=== PATIENT | female | born 1990 | race Caucasian/White ===

== ENCOUNTER 2019-11-13 11:48 | Emergency (ER) | payer OTHER, SELFPAY ==
[2019-11-13 11:59] VITALS: BP 128/62; PULSE 77; RESP 16; TEMP 37; O2SAT 100
--- NOTE | 2019-11-13 12:18 | ED.URI ---
HPI - URI/Sore Throat General Chief Complaint: Upper Respiratory Infection Stated Complaint: SORE THROAT/CONGESTION Time Seen by Provider: 11/13/19 11:52 Source: patient Limitations: no limitations History of Present Illness HPI Narrative: 29-year-old female presents to urgent care with complaints of sore throat, body aches, fatigue and chills since this morning. Patient reports that she has had postnasal drainage for the past month. Patient reports history of sinus infections. Patient not tried taking any mgnl-aum-itljuvs medications for her symptoms. Patient denies nausea, vomiting, diarrhea, shortness of breath, wheezing. Patient denies sick contacts. Patient is non-smoker. Patient denies recent travel MD elicited complaint: sore throat, rhinorrhea and nasal congestion Consistency: constant Able to tolerate fluids by mouth: Yes Exacerbating factors: nothing Relieving factors: nothing Treatments prior to arrival: none Related Data Home Medications Medication Instructions Recorded Confirmed Vicks DayQuil Cough 11/13/19 etonogestrel-ethinyl estradiol 1 vag ring VAGINAL ONCE 11/13/19 11/13/19 [NuvaRing] Allergies Allergy/AdvReac Type Severity Reaction Status Date / Time No Known Allergies Allergy Verified 11/13/19 12:05 Review of Systems Constitutional: Constitutional: Reports chills, Denies fatigue and Denies fever(s) ENT: Denies dysphagia, Denies dizziness, Denies epistaxis and Reports sore throat Cardiovascular: Cardiovascular: Denies chest pain and Denies radiating jaw, neck or arm pain Respiratory: Respiratory: Denies chest congestion, Denies dyspnea and Denies wheezing Gastrointestinal: Gastrointestinal: Denies constipation, Denies diarrhea, Denies nausea and Denies vomiting Neurologic: Denies vertigo, Denies dizziness, Denies syncope and Denies focal weakness [facility] Social History Social History (Updated 11/13/19 @ 12:21 by Vidhya Rivera APN) Smoking status: Never smoker Exam Const: General: healthy appearing, no acute distress and alert Orientation/consciousness: patient oriented x3 HENMT: Ears: external ears normal and TM's normal bilaterally General nose exam: Normal nares present Face and sinus: sinuses nontender Mouth: Yes Normal oral and palatal mucosa present Neck: Neck: normal visual inspection Chest: Chest palpation & inspection: normal inspection of the chest Resp: Effort & Inspection: normal respiratory effort Auscultation: clear to auscultation bilaterally Cardio: Rate: regular rate Rhythm: regular rhythm Heart sounds: no murmurs Skin: General skin exam: normal color, no jaundice and no pallor Rashes: no rashes Neuro: General: patient oriented x3, moves all extremities and no meningeal signs Extrem: General: normal to inspection Psych: Appearance: grossly normal Mental Status: mental status grossly normal Affect: normal affect Attitude: cooperative Thought content: Yes Normal thought content present Course Vital Signs Vital signs: Vital Signs Temperature 37.0 C 11/13/19 11:59 Pulse Rate 77 11/13/19 11:59 Respiratory Rate 16 11/13/19 11:59 Blood Pressure 128/62 11/13/19 11:59 Pulse Oximetry 100 11/13/19 11:59 Temperature 37.0 C 11/13/19 11:59 Pulse Rate 77 11/13/19 11:59 Respiratory Rate 16 11/13/19 11:59 Blood Pressure 128/62 11/13/19 11:59 Pulse Oximetry 100 11/13/19 11:59 MDM - URI/Sore Throat MDM Narrative Medical decision making narrative: Negative lab results discussed with patient. Patient agrees to take Claritin and Flonase as prescribed. Patient agrees to follow-up with primary care provider if symptoms not improve Differential Diagnosis Differential diagnosis: Likely otitis media, sinusitis, viral infection and bronchitis Lab Data Labs: Influenza A Screen Negative Reference Range: Negative Influenza B Screen Negative Reference Range: Negative Strep Screen
--- NOTE | 2019-11-13 12:41 | ED_ITS ---
HPI - URI/Sore Throat General Chief Complaint: Upper Respiratory Infection Stated Complaint: SORE THROAT/CONGESTION Time Seen by Provider: 11/13/19 11:52 Source: patient Limitations: no limitations History of Present Illness Exacerbating factors: nothing Relieving factors: nothing Treatments prior to arrival: none Related Data Home Medications Medication Instructions Recorded Confirmed Vicks DayQuil Cough 11/13/19 etonogestrel-ethinyl estradiol 1 vag ring VAGINAL ONCE 11/13/19 11/13/19 [NuvaRing] Allergies Allergy/AdvReac Type Severity Reaction Status Date / Time No Known Allergies Allergy Verified 11/13/19 12:05 [facility] Social History Social History (Updated 11/13/19 @ 12:21 by Vidhya Rivera APN) Smoking status: Never smoker Course Vital Signs Vital signs: Vital Signs Temperature 37.0 C 11/13/19 11:59 Pulse Rate 77 11/13/19 11:59 Respiratory Rate 16 11/13/19 11:59 Blood Pressure 128/62 11/13/19 11:59 Pulse Oximetry 100 11/13/19 11:59 Temperature 37.0 C 11/13/19 11:59 Pulse Rate 77 11/13/19 11:59 Respiratory Rate 16 11/13/19 11:59 Blood Pressure 128/62 11/13/19 11:59 Pulse Oximetry 100 11/13/19 11:59 MDM - URI/Sore Throat Lab Data Labs: Influenza A Screen Negative Reference Range: Negative Influenza B Screen Negative Reference Range: Negative Strep Screen Presumptive Negative *(Reference Range: Negative)* Discharge Plan Discharge Prescriptions: No Action etonogestrel-ethinyl estradiol [NuvaRing] 0.12-0.015 mg/24 hr Ring 1 vag ring VAGINAL ONCE RF: 0 Vicks DayQuil Cough RF: 0
== END 2019-11-13 12:54 | disposition home or self-care (01) ==
PROVIDERS: Emergency Provider Nurse Practitioner Family
DX: J06.9 Acute upper respiratory infection, unspecified (principal)
CPT/HCPCS: 87081; 87804; 87880; 99213; G0463